=== PATIENT | female | born 1995 | race Caucasian/White ===

== ENCOUNTER 2020-02-24 18:29 | Observation (INO) | payer OTHER, SELFPAY ==
[2020-02-24 18:32] VITALS: BP 148/88; PULSE 82; RESP 18; TEMP 36.4; O2SAT 98; BMI 25.4
--- NOTE | 2020-02-24 18:39 | ED_ITS ---
HPI - Psych General: Chief Complaint: Psychiatric Symptoms Stated Complaint: mhe Time Seen by Provider: 02/24/20 18:36 Coding Level of Care Code ED Compress Trucker for Feroz Clemente
[2020-02-24 18:58] VITALS: RESP 16
[2020-02-24] MEDS: LORazepam 1 mg Tablet PO (19:02)
[2020-02-24 19:24] LABS: HCG, Serum Qual Negative (Negative)
[2020-02-24 19:28] LABS: Amphetamines Screen Urine Negative (Negative); Barbiturates Screen Urine Negative (Negative); Benzodiazepines Screen Urine Negative (Negative); Cocaine Screen Urine Negative (Negative); Opiate Screen Urine Negative (Negative); PCP Screen Urine Negative (Negative); THC Screen Urine Negative (Negative)
[2020-02-24 19:37] LABS: Basophils # 0.1 10^3/uL (0.0-0.1); Basophils % 0.7 %; Eosinophils % 0.4 %; Hematocrit 39.7 % (37.0-47.0); Hemoglobin 13.1 g/dL (11.5-15.3); Lymphocytes # 1.3 10^3/uL (0.8-4.8); Lymphocytes % 18.9 %; Mean Corpuscular Volume 91.1 fL (81-99); Mean Platelet Volume 9.7 fL (7.4-10.4); Monocytes # 0.5 10^3/uL (0.2-0.9); Monocytes % 7.1 %; Neutrophils # 5.16 10^3/uL (1.8-7.7); Neutrophils % 72.8 %; Nucleated Red Blood Cells % 0 %; Platelet Count 372 10^3/cmm (130-400); Red Blood Count 4.36 10^6/uL (4.1-5.3); White Blood Count 7.1 10^3/uL (4.0-10.0)
[2020-02-24 19:48] LABS: Alanine Aminotransferase 12 U/L (0-33); Albumin Level 4.6 g/dL (3.5-5.2); Alkaline Phosphatase 96 IU/L (35-105); Aspartate Amino Transferase 18 U/L (0-32); Blood Urea Nitrogen 6 mg/dL (6-20); Calcium 9.7 mg/dL (8.5-10.5); Carbon Dioxide 21 mmol/L (22-29); Chloride 106 mmol/L (98-107); Globulin 3.7 g/dL (1.3-4.6); Glomerular Filtration Rate 103.7 mL/min (90-130); Glucose 104 mg/dL (65-115); Osmolality Calculated 284 mOsm/kg (285-295); Sodium 138 mmol/L (136-145); Total Bilirubin 1.1 mg/dL (0.15-1.2); Total Protein 8.3 g/dL (6.6-8.7)
[2020-02-24 19:49] LABS: Acetaminophen < 5.0 ug/mL (10-30); Alcohol Level < 10 mg/dL (0-10); Salicylate < 0.3 mg/dL (3-10)
[2020-02-24] MEDS: acetaminophen 500 mg Tablet 1000 MG PO (20:04)
[2020-02-24 20:17] VITALS: BP 125/79; PULSE 83; TEMP 36.9; O2SAT 98
[2020-02-24 22:00] VITALS: RESP 16
[2020-02-24] MEDS: nicotine 2 mg Gum BUCCAL (23:34)
[2020-02-25 06:00] VITALS: BP 116/82; PULSE 54; RESP 18; TEMP 36.6; O2SAT 99
[2020-02-25] MEDS: nicotine 21 mg Patch 1 PATCH TRANSDERMA (07:02)
[2020-02-25] MEDS: BuSPIRONE 10 mg Tablet PO (11:26)
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
[2020-02-25 11:42] VITALS: BP 116/82; PULSE 54; RESP 18; TEMP 36.6; O2SAT 99
[2020-02-25 13:06] VITALS: BP 106/62; PULSE 80; RESP 18; TEMP 36.9; O2SAT 97
[2020-02-25] MEDS: venlafaxine ER (24HR) 75 mg Capsule PO (15:27)
== END 2020-02-25 17:19 | disposition home or self-care (01) | DRG 880 ==
LOC: ER 18:36 → NP 02-25 08:35
PROVIDERS: Emergency Medicine; Admitting Provider Psychiatry & Neurology Psychiatry; Emergency Provider Emergency Medicine; Visit Provider Psychiatry & Neurology Psychiatry
DX: F41.8 Other specified anxiety disorders (principal); R45.851 Suicidal ideations; F17.290 Nicotine dependence, other tobacco product, uncomplicated; Z81.8 Family history of other mental and behavioral disorders; F43.25 Adjustment disorder with mixed disturbance of emotions and conduct
CPT/HCPCS: 12345; 80053; 80306; 80307; 84703; 85025; 99284; G0378